=== PATIENT | female | born 1980 | race Caucasian/White ===

== ENCOUNTER 2019-02-12 14:42 | Inpatient (IN) | payer BC ==
[~2019-02-12] VITALS: Ht 170.2 cm; Wt 108.9 kg
--- NOTE | 2019-02-12 15:30 | NUR ---
Pt direct admit from [facility] ER via EMS with diagnosis: NSTEMI. Dr. Velez called for orders, rounded on pt. Pt A&Ox4. Denies pain. Motrin 800mg given po prior to leaving ER. VSS. Low grade temp. SR per monitor. Pt denies CP. Room air. Lungs clear. BS active. Up to bathroom to void. UA sent. #20 Saline Lock Right AC (placed at [facility]). and mother at bedside, supportive.
[2019-02-12 16:00] VITALS: BP 160/92
[2019-02-12 17:31] LABS: URINE BILIRUBIN NEGATIVE (Negative); URINE BLOOD TRACE (Negative); URINE CLARITY CLEAR; URINE COLOR YELLOW; URINE GLUCOSE-RANDOM* NEGATIVE (Negative); URINE KETONES NEGATIVE (Negative); URINE LEUKOCYTES-REFLEX NEGATIVE (Negative); URINE NITRITE-REFLEX NEGATIVE (Negative); URINE PROTEIN (DIPSTICK) NEGATIVE (Negative); URINE UROBILINOGEN 0.2 E.U./dl (0.2-1.0)
[2019-02-12 19:26] LABS: CHOLESTEROL 159 mg/dL (<200); HDL CHOLESTEROL 29 mg/dL (>40); LDL CHOLESTEROL 95 mg/dL (<100); TC:HDL 5.5 Ratio (Not establshd); TRIGLYCERIDE 178 mg/dL (<150); VLDL 36 mg/dL (<40)
[2019-02-12 20:00] VITALS: BP 131/71
[2019-02-13 03:56] VITALS: BP 117/68
[2019-02-13 04:00] LABS: HEMATOCRIT 38.9 % (37.0-47.0); HEMOGLOBIN 13.1 gm/dL (12.0-15.0); MCH 30.6 pg (26.0-34.0); MCHC 33.6 g/dL (28.0-37.0); MCV 91.2 fL (80.0-100.0); RBC 4.27 mil/uL (4.20-5.00); RDW 12.8 % (10.5-14.5); WBC 10.5 thou/uL (4.0-11.0)
[2019-02-13 04:06] LABS: GLYCOHEMOGLOBIN (HGB A1C) 5.4 % (4.8-5.6)
[2019-02-13 04:12] LABS: CALCIUM 8.4 mg/dL (8.5-10.1); CREATININE 1.1 mg/dL (0.6-1.0); POTASSIUM 4.1 mmol/L (3.5-5.1); TROPONIN-I 0.12 ng/mL (<0.06)
[2019-02-13 08:18] VITALS: BP 121/59
--- NOTE | 2019-02-13 08:23 | NUR ---
A/O X 4.COMPLAIN OF CHEST PRESSURE RATES 3 TO 4.DOESN'T RADIATE TO NECK NOR BACK AND ARMS.TYLENOL GIVEN.MONITOR SHOWS SR.WILL MONITOR AND CONTINUE POC.
[2019-02-13] MEDS ORDERED: CARDIZEM CD120 MG PO (14:24)
[2019-02-13] MEDS ORDERED: CEFUROXIME250 MG PO (14:43)
[2019-02-13 15:26] VITALS: BP 121/59
--- NOTE | 2019-02-13 16:20 | NUR ---
ASSUMED CARE OF PT AT SHIFT CHANGE. ASSESSMENTS CHARTED. MEDS GIVEN PER JUN. VSS. A&OX4. NO C/O CHEST PAIN OR SOA. PT UP AD TYLER. AT BEDSIDE. DC ORDERS AND EDUCATION COMPLETE. IV AND TELE D/C'D. PT HAD ALL BELONGING WHEN LEAVING. PT WALKED WITH TO CAR.
[2019-02-13 16:23] VITALS: BP 121/59
== END 2019-02-13 16:26 | disposition home or self-care (01) | DRG 309 ==
LOC: 2N 14:42
PROVIDERS: Nurse Practitioner; ADMIT Hospitalist
DX: I47.1 Supraventricular tachycardia (principal); N39.0 Urinary tract infection, site not specified; I10 Essential (primary) hypertension; E66.9 Obesity, unspecified; F17.210 Nicotine dependence, cigarettes, uncomplicated; R73.9 Hyperglycemia, unspecified; K21.9 Gastro-esophageal reflux disease without esophagitis; F41.0 Panic disorder [episodic paroxysmal anxiety]; Z68.37 Body mass index [BMI] 37.0-37.9, adult; Z90.710 Acquired absence of both cervix and uterus; Z82.49 Family history of ischemic heart disease and other diseases of the circulatory system; Z98.891 History of uterine scar from previous surgery
CPT/HCPCS: 10081

== ENCOUNTER 2019-02-24 20:53 | Emergency (ER) | payer BC, OTHER ==
[~2019-02-24] VITALS: Ht 170.2 cm; Wt 106.6 kg
[~2019-02-24 20:53] MED LIST: CARDIZEM CD120 MG PO; CEFUROXIME250 MG PO
[2019-02-24] MEDS ORDERED: OMEPRAZOLE 20 M20 M1 PO (21:06)
[2019-02-24] MEDS ORDERED: LOSARTAN POTAS100 MG PO (21:06)
[2019-02-24 21:17] LABS: ABSOLUTE NEUTROPHILS 12.4 thou/uL (1.4-8.2); BASOPHILS 0.5 % (0.0-2.0); EOSINOPHILS 4.5 % (0.0-3.0); HEMATOCRIT 42.9 % (37.0-47.0); HEMOGLOBIN 14.5 gm/dL (12.0-15.0); LYMPHOCYTES 11.1 % (24.0-44.0); MCH 30.7 pg (26.0-34.0); MCHC 33.7 g/dL (28.0-37.0); MCV 90.9 fL (80.0-100.0); MONOCYTES 4.5 % (1.0-8.0); PLATELET COUNT 287 thou/uL (150-400); POLYS 79.4 % (36.0-66.0); RBC 4.71 mil/uL (4.20-5.00); WBC 15.6 thou/uL (4.0-11.0)
[2019-02-24 21:21] LABS: ANION GAP 11 mmol/L (7-16); BUN 16 mg/dL (7-18); CALCIUM 8.8 mg/dL (8.5-10.1); CHLORIDE 103 mmol/L (98-107); CO2 25 mmol/L (21-32); GLUCOSE 106 mg/dL (74-106); POTASSIUM 3.6 mmol/L (3.5-5.1); SODIUM 139 mmol/L (136-145)
[2019-02-24 21:29] LABS: TROPONIN-I <0.06 ng/mL (<0.06)
[2019-02-24 22:06] VITALS: BP 134/92
--- NOTE | 2019-02-26 12:18 | EKG ---
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
== END 2019-02-24 22:07 | disposition home or self-care (01) ==
LOC: ER 20:53
PROVIDERS: Emergency Medicine
DX: I47.1 Supraventricular tachycardia (principal); I10 Essential (primary) hypertension; Z90.710 Acquired absence of both cervix and uterus; F17.210 Nicotine dependence, cigarettes, uncomplicated; Z88.5 Allergy status to narcotic agent; Z88.8 Allergy status to other drugs, medicaments and biological substances

== ENCOUNTER → 2019-02-25 | Outpatient (CLI) | payer BC, OTHER ==
[~2019-02-25] VITALS: Ht 170.2 cm; Wt 106.6 kg
[~2019-02-25] MED LIST changes: +LOSARTAN POTAS100 MG PO; +OMEPRAZOLE 20 M20 M1 PO
[2019-02-25 07:13] VITALS: BP 110/61
[2019-02-25 07:15] LABS: ABSOLUTE NEUTROPHILS 7.9 thou/uL (1.4-8.2); BASOPHILS 0.6 % (0.0-2.0); EOSINOPHILS 6.4 % (0.0-3.0); HEMATOCRIT 41.6 % (37.0-47.0); HEMOGLOBIN 13.7 gm/dL (12.0-15.0); MCH 30.2 pg (26.0-34.0); MCV 91.3 fL (80.0-100.0); MONOCYTES 5.3 % (1.0-8.0); PLATELET COUNT 287 thou/uL (150-400); POLYS 70.7 % (36.0-66.0); RBC 4.56 mil/uL (4.20-5.00); RDW 13.3 % (10.5-14.5); WBC 11.2 thou/uL (4.0-11.0)
[2019-02-25 07:24] LABS: CALCIUM 9.2 mg/dL (8.5-10.1)
[2019-02-25 07:30] LABS: ALBUMIN 3.8 g/dL (3.4-5.0); TOTAL BILIRUBIN 0.5 mg/dL (<0.1-1.0); TOTAL PROTEIN 7.7 g/dL (6.4-8.2)
[2019-02-25 07:32] LABS: PROTIME 9.6 Seconds (9.3-11.4)
--- NOTE | 2019-02-25 10:50 | NUR ---
PT BROUGHT TO ROOM FROM PACU. REPORT RECIEVED. GROIN CHECKS SOFT, DRESSINGS IN PLACE. PT AWAKE AND ALERT.
--- NOTE | 2019-03-08 14:02 | P ---
[facility] [place] [address] PROCEDURE REPORT Name: ZACHARY HICKMAN Room #: REG IRMAErick Chen.#: [id number] Admission: 02/25/19 Attend Phys: Bon Villalobos MD Discharge: Date of : 76 Report #: [id number] THIS REPORT FOR: //name// CC: Geneva Villalobos PREOPERATIVE DIAGNOSIS: Supraventricular tachycardia. POSTOPERATIVE DIAGNOSIS: Typical atrioventricular char reentrant tachycardia. PROCEDURES PERFORMED: 1. SVT ablation, CPT code 88954. 2. EP with left atrial pacing and recording, CPT code 90848. 3. Program stimulation pacing after IV drug infusion, CPT code 56307. 4. 3D mapping, CPT code 31541. HISTORY OF PRESENT ILLNESS: The patient is a 38-year-old female with a history of recurrent SVT, recently seen in the Emergency Room with SVT with left bundle branch block, aberration, which responded to IV adenosine. She is here for EP study and ablation. ANESTHESIA: The patient underwent MAC anesthesia with no anesthesia related complications. DESCRIPTION OF PROCEDURE: The patient underwent informed consent. We discussed the details of the procedure including the risks, which include but not limited to bleeding, vascular damage, cardiac perforation, stroke, GA as well as damage to the [place] conduction system requiring permanent pacemaker. She understood these risks and is willing to proceed. The patient was brought to the EP laboratory in fasting and sedated state, prepped and draped in a sterile fashion. I injected lidocaine to the bilateral groin regions and obtained access to the bilateral femoral veins, placing an 8 and 6-Zimbabwean short sheath in the right femoral vein and a 6 and 7-[place]imbabwean short sheath in the left femoral vein using the modified Seldinger technique. Next, under fluoroscopy, decapolar catheter was placed easily in the coronary sinus, which was used for left atrial pacing and recording, 3 quadripolar catheters were placed at the HRA, His and RV positions and a basic EP study was then performed. At baseline, the patient was in sinus rhythm with sinus cycle length of 795 milliseconds, TN interval 145 milliseconds, QRS duration 70 milliseconds, QT interval 380 milliseconds, AH interval 95 milliseconds, HV interval 45 milliseconds. Next, atrial burst pacing was performed and AV block was noted at 350 milliseconds. It appeared that she had a slow pathway with atrial burst pacing. Next, single atrial extrastimuli were delivered and slow pathway ERP was noted at 320 milliseconds at a [address] cycle length with [facility] [address] [place] [address] PROCEDURE REPORT Name: ZACHARY HICKMAN Room #: REG [facility]#: [id number] Admission: 02/25/19 Attend Phys: Bon Villalobos MD Discharge: Date of : 76 Report #: [id number] a 70 millisecond jump. Atrial ERP was noted at 270 milliseconds at a [address] cycle length. Ventricular pacing was performed and VA block was noted at 470 milliseconds. VA ERP was noted at 400 milliseconds at a [address] cycle length. VA conduction was both midline and decremental with no evidence of accessory pathway. Isoproterenol infusion was started at 2 mcg per minute and as her conduction improved, I was unable to induce SVT with either single or double atrial extrastimuli or with atrial burst pacing. SVT demonstrated tachycardic cycle length of 310 milliseconds, septal VA time of 35 milliseconds and ventricular entrainment demonstrated VAHV response. I was able to induce tachycardia quite easily. I could easily entrain the tachycardia and it was actually hard to terminate. 3D MAPPING AND ABLATION: Next, I removed my HRA catheter and sheath and placed an SR0 and a 4-mm [employer] Khalil ablation catheter into the right atrium and created a detailed 3D geometry of the right atrium with specific emphasis of the His bundle region and the slow pathway region and coronary sinus ostium. I found a nice slow pathway potential and performed ablation at this site at 50 olivarez and 55 degrees. At this first ablation site, we got approximately 20 seconds of junctionals. I performed a total of 5 ablation lesions with lesions 2, 3 and 4 demonstrating nice slow junctionals. Lesion 4 had almost continuous junctionals for 60 seconds. My fifth lesion showed no further junctional beats. There was never any compromise to conduction noted. As such, we had some high-grade lesions and decided to perform testing. POST-ABLATION TESTING: The patient was immediately started back on isoproterenol 2 mcg per minute. AV block was noted at 290 milliseconds. Atrial ERP was noted at 210 milliseconds at [address] cycle length. We did not see the crossover that we previously saw. There were no AV char echoes noted. Single and double atrial extrastimuli were delivered and no SVT was induced. We tested for approximately 20 minutes on isoproterenol and then turned it off and continued testing and we could no longer induce SVT nor did we have any single AV char echoes. Post-ablation, the patient was in sinus rhythm with sinus cycle length of 715 milliseconds, TN interval 140 milliseconds, QRS duration 75 milliseconds, QT interval 365 milliseconds, AH interval 93 milliseconds, and HV interval 45 milliseconds. Catheters and sheaths were pulled. Hemostasis was obtained. The patient awoke neurologically and hemodynamically intact. No complications and no significant bleeding. CONCLUSIONS: 1. Successful ablation of typical AV char reentrant tachycardia. 2. Normal SA char function. 3. Normal AV char function. [facility] [address] [place] [address] PROCEDURE REPORT Name: ZACHARY HICKMAN Room #: TORIE Jacobo#: [id number] Admission: 02/25/19 Attend Phys: Bon Villalobos MD Discharge: Date of : 76 Report #: [id number] 4. Normal His-Purkinje function. 5. No other inducible arrhythmias on or off isoproterenol. <ELECTRONICALLY SIGNED> By: Bon Villalobos MD 03/08/19 1402 1139 1537 Bon Villalobos MD /nt
== END | disposition home or self-care (01) ==
LOC: CATH 06:25
PROVIDERS: Internal Medicine Cardiovascular Disease
DX: I47.1 Supraventricular tachycardia (principal); I10 Essential (primary) hypertension; F17.210 Nicotine dependence, cigarettes, uncomplicated; Z98.890 Other specified postprocedural states; Z90.710 Acquired absence of both cervix and uterus; Z82.49 Family history of ischemic heart disease and other diseases of the circulatory system; Z79.899 Other long term (current) drug therapy; Z88.8 Allergy status to other drugs, medicaments and biological substances; Z79.01 Long term (current) use of anticoagulants
CPT/HCPCS: 62110; 62900; 70005